=== PATIENT | male | born 1940 | race Caucasian/White ===

== ENCOUNTER 2017-03-05 09:42 | Emergency (ER) | payer MEDICARE, OTHER ==
[~2017-03-05] VITALS: Wt 83.5 kg
[~2017-03-05 09:42] MED LIST: ALPHAGAN-P 0.2%5 ML OPH; ASPIR LOW81 MG PO; ATENOLOL25 MG PO; BACTRIM DS 8001 TA1 PO; CLINDAMYCIN HC300 MG PO; FEROSUL325 MG PO; LASIX40 MG PO; LIPITOR40 MG PO; LYRICA150 MG PO; LYRICA25 MG PO; MULTI VITAMINS1 TAB PO; PREDNISONE10 MG PO; XALATAN 0.005%2.5 ML INTRAOC; ZITHROMAX500 MG PO
[2017-03-05] MEDS ORDERED: NORCO 5-325 TA1 EACH PO (11:40)
== END 2017-03-05 13:42 | disposition home or self-care (01) ==
LOC: ED 09:42
DX: M25.511 Pain in right shoulder (principal); Z90.49 Acquired absence of other specified parts of digestive tract; Z79.82 Long term (current) use of aspirin; Z79.899 Other long term (current) drug therapy

== ENCOUNTER 2019-07-01 11:09 | Emergency (ER) | payer OTHER ==
[~2019-07-01] VITALS: Ht 170.1 cm; Wt 86.2 kg
[~2019-07-01 11:09] MED LIST changes: +NORCO 5-325 TA1 EACH PO
== END 2019-07-01 13:07 | disposition home or self-care (01) ==
LOC: ED 11:09
DX: R60.0 Localized edema (principal); I10 Essential (primary) hypertension; E78.00 Pure hypercholesterolemia, unspecified; Z79.2 Long term (current) use of antibiotics; Z79.899 Other long term (current) drug therapy; Z79.82 Long term (current) use of aspirin

== ENCOUNTER 2020-03-26 16:02 | Emergency (ER) | payer OTHER ==
[~2020-03-26] VITALS: Ht 170.1 cm; Wt 90.7 kg
== END 2020-03-26 17:21 | disposition home or self-care (01) ==
LOC: ED 16:02
DX: S20.219A Contusion of unspecified front wall of thorax, initial encounter (principal); I10 Essential (primary) hypertension; Z79.899 Other long term (current) drug therapy; Z79.82 Long term (current) use of aspirin; V89.2XXA Person injured in unspecified motor-vehicle accident, traffic, initial encounter; Y93.89 Activity, other specified; Y92.89 Other specified places as the place of occurrence of the external cause; Y99.8 Other external cause status

== ENCOUNTER 2021-07-01 14:02 | Emergency (ER) | payer OTHER ==
[2021-07-01] MEDS ORDERED: HYDROCODONE-AC1 EAC1 PO (16:46)
[2021-07-07] MEDS ORDERED: VITAMIN B125000 MCG PO (14:58)
== END 2021-07-01 17:30 | disposition home or self-care (01) ==
LOC: ED 14:02
DX: S82.441A Displaced spiral fracture of shaft of right fibula, initial encounter for closed fracture (principal); S62.616A Displaced fracture of proximal phalanx of right little finger, initial encounter for closed fracture; S52.121A Displaced fracture of head of right radius, initial encounter for closed fracture; Z79.899 Other long term (current) drug therapy; Z79.2 Long term (current) use of antibiotics; Z79.82 Long term (current) use of aspirin; Z90.49 Acquired absence of other specified parts of digestive tract; W19.XXXA Unspecified fall, initial encounter; Y93.89 Activity, other specified; Y92.89 Other specified places as the place of occurrence of the external cause; Y99.8 Other external cause status

== ENCOUNTER → 2021-07-11 | Day surgery (SDC) | payer OTHER ==
[2021-07-07 14:28] VITALS: BP 110/66
[2021-07-07 15:58] LABS: BASO % 0.4 % (0.0-1.0); EOS # 0.3 10*3/uL (0.0-0.4); EOS % 3.4 % (1.0-4.0); HEMATOCRIT 32.3 % (42.0-52.0); LYMPH # 1.1 10*3/uL (1.3-4.4); LYMPH % 13.2 % (27.0-41.0); MEAN CELL VOLUME 88.7 fl (80.0-94.0); MEAN CORPUSCULAR HGB 29.1 pg (27.0-31.0); MEAN CORPUSCULAR HGB CONC 32.8 g/dl (33.0-37.0); MEAN PLATELET VOLUME 10.5 fl (9.6-12.3); MONO # 0.8 10*3/uL (0.1-1.0); MONO % 9.5 % (3.0-9.0); NEUT # 6.1 10*3/uL (2.3-7.9); NEUT % 73.3 % (47.0-73.0); PLATELET COUNT AUTOMATED 261 10*3/uL (130-400); RED BLOOD COUNT 3.64 10*6/uL (4.50-5.90); RED CELL DISTRI WIDTH 13.1 % (0-14.5); WHITE BLOOD COUNT 8.3 10*3/uL (4.8-10.8)
[2021-07-07 16:09] LABS: CREATININE 1.4 mg/dL (0.70-1.30); POTASSIUM 3.8 mmol/L (3.5-5.1)
[~2021-07-11] VITALS: Ht 170.1 cm; Wt 83.9 kg
[~2021-07-11] MED LIST changes: +HYDROCODONE-AC1 EAC1 PO; +VITAMIN B125000 MCG PO
[2021-07-11 06:49] VITALS: BP 119/61
[2021-07-11 08:57] VITALS: BP 115/49
[2021-07-11 09:15] VITALS: BP 131/74
[2021-07-11 09:30] VITALS: BP 135/78
[2021-07-11 09:51] VITALS: BP 133/70
== END | disposition home or self-care (01) ==
LOC: SDC 07-07 14:00
PROVIDERS: ATTEND Orthopaedic Surgery
DX: S82.841A Displaced bimalleolar fracture of right lower leg, initial encounter for closed fracture (principal); S93.421A Sprain of deltoid ligament of right ankle, initial encounter; I10 Essential (primary) hypertension; E78.00 Pure hypercholesterolemia, unspecified; Z87.891 Personal history of nicotine dependence; X58.XXXA Exposure to other specified factors, initial encounter; Y93.89 Activity, other specified; Y92.89 Other specified places as the place of occurrence of the external cause; Y99.8 Other external cause status

== ENCOUNTER → 2021-07-19 | Outpatient (CLI) | payer OTHER | END | disposition home or self-care (01) | LOC: ORTHO 01:49 | PROVIDERS: ATTEND Orthopaedic Surgery | DX: S82.841D Displaced bimalleolar fracture of right lower leg, subsequent encounter for closed fracture with routine healing (principal); X58.XXXD Exposure to other specified factors, subsequent encounter ==

== ENCOUNTER → 2021-08-16 | Outpatient (CLI) | payer OTHER | END | disposition home or self-care (01) | LOC: ORTHO 00:21 | PROVIDERS: ATTEND Orthopaedic Surgery | DX: S82.841D Displaced bimalleolar fracture of right lower leg, subsequent encounter for closed fracture with routine healing (principal); S52.134A Nondisplaced fracture of neck of right radius, initial encounter for closed fracture; M85.841 Other specified disorders of bone density and structure, right hand; S62.646D Nondisplaced fracture of proximal phalanx of right little finger, subsequent encounter for fracture with routine healing; X58.XXXA Exposure to other specified factors, initial encounter; X58.XXXD Exposure to other specified factors, subsequent encounter; Y93.89 Activity, other specified; Y92.89 Other specified places as the place of occurrence of the external cause; Y99.8 Other external cause status ==

== ENCOUNTER → 2021-09-29 | Outpatient (CLI) | payer OTHER | LOC: ORTHO 01:01 | PROVIDERS: ATTEND Orthopaedic Surgery | DX: S82.841D Displaced bimalleolar fracture of right lower leg, subsequent encounter for closed fracture with routine healing (principal); X58.XXXD Exposure to other specified factors, subsequent encounter ==

== ENCOUNTER 2022-12-24 11:12 | Inpatient (IN) | payer OTHER ==
[~2022-12-24] VITALS: Ht 167.6 cm; Wt 84.4 kg
[2022-12-24 11:29] VITALS: BP 125/62
[2022-12-24 11:48] LABS: BILIRUBIN Negative (Negative); BLOOD Negative (Negative); CLARITY Clear (Clear); COLOR Yellow (Yellow); GLUCOSE Negative (Negative); KETONE Negative (Negative); LEUKO ESTERASE Negative (Negative); NITRITE Negative (Negative); PH 7.5 (4.5-8.0)
[2022-12-24 12:04] LABS: BACTERIA TRACE; EPITHELIAL CELLS 0-2; WBC 0-2 wbc/hpf (0-5)
[2022-12-24 12:16] LABS: HEMATOCRIT 38.6 % (42.0-52.0); MEAN CELL VOLUME 87.9 fl (80.0-94.0); MEAN CORPUSCULAR HGB 29.8 pg (27.0-31.0); MEAN CORPUSCULAR HGB CONC 33.9 g/dl (33.0-37.0); MEAN PLATELET VOLUME 10.5 fl (9.6-12.3); PLATELET COUNT AUTOMATED 151 10*3/uL (130-400); RED BLOOD COUNT 4.39 10*6/uL (4.50-5.90); RED CELL DISTRI WIDTH 13.6 % (0-14.5); WHITE BLOOD COUNT 15.9 10*3/uL (4.8-10.8)
[2022-12-24 12:35] LABS: MANUAL DIFF REFLEX YES
[2022-12-24 12:45] LABS: POTASSIUM 3.3 mmol/L (3.4-5.1); TOTAL PROTEIN 6.9 gm/dL (6.0-8.0)
[2022-12-24 12:47] LABS: TOTAL CELLS COUNTED 100 #CELLS
[2022-12-24 12:48] LABS: PLATELET SUFFICIENCY NORMAL (NORMAL)
[2022-12-24 13:19] VITALS: BP 106/64
[2022-12-24 15:40] VITALS: BP 135/59
[2022-12-24 15:48] VITALS: BP 116/59
[2022-12-24] MEDS ORDERED: TERAZOSIN HCL5 M1 PO (17:52)
[2022-12-24] MEDS ORDERED: OMEPRAZOLE MAGN20 MG PO (17:53)
[2022-12-24] MEDS ORDERED: FEROSUL325 MG PO (17:54)
[2022-12-24] MEDS ORDERED: HYDROCHLOROTHIA25 M1 PO (17:54)
[2022-12-24] MEDS ORDERED: VOLTAREN ARTHRI20 GM T (17:58)
[2022-12-24] MEDS ORDERED: ACETAZOLAMIDE250 MG PO (17:59)
[2022-12-24] MEDS ORDERED: VITAMIN D350 MC2 PO (18:00)
[2022-12-24 20:00] VITALS: BP 130/61
[2022-12-24 23:59] VITALS: BP 94/50
[2022-12-25 06:39] LABS: BASO % 0.4 % (0.0-1.0); EOS # 0.1 10*3/uL (0.0-0.4); HEMATOCRIT 34.9 % (42.0-52.0); LYMPH # 0.9 10*3/uL (1.3-4.4); MEAN CELL VOLUME 89.7 fl (80.0-94.0); MEAN CORPUSCULAR HGB 29.6 pg (27.0-31.0); MEAN PLATELET VOLUME 10.9 fl (9.6-12.3); MONO % 9.7 % (3.0-9.0); NEUT # 8.2 10*3/uL (2.3-7.9); NEUT % 79.1 % (47.0-73.0); PLATELET COUNT AUTOMATED 131 10*3/uL (130-400); RED BLOOD COUNT 3.89 10*6/uL (4.50-5.90); RED CELL DISTRI WIDTH 13.9 % (0-14.5); WHITE BLOOD COUNT 10.4 10*3/uL (4.8-10.8)
[2022-12-25 07:21] LABS: FREE T4 1.1 ng/dl (0.89-1.76); POTASSIUM 3.5 mmol/L (3.4-5.1); THYROID STIM HORMONE (HS) 1.194 uIU/ml (0.550-4.780); TOTAL PROTEIN 5.9 gm/dL (6.0-8.0)
[2022-12-25 08:00] VITALS: BP 112/53
[2022-12-25 12:00] VITALS: BP 100/50
[2022-12-25 16:00] VITALS: BP 110/77
[2022-12-25 20:00] VITALS: BP 118/63
[2022-12-26] VITALS: BP 116/56
[2022-12-26 06:52] LABS: BASO % 0.5 % (0.0-1.0); EOS # 0.4 10*3/uL (0.0-0.4); HEMATOCRIT 33.6 % (42.0-52.0); LYMPH % 12.8 % (27.0-41.0); MEAN CELL VOLUME 90.3 fl (80.0-94.0); MEAN CORPUSCULAR HGB 29.8 pg (27.0-31.0); MEAN PLATELET VOLUME 11.3 fl (9.6-12.3); MONO # 0.9 10*3/uL (0.1-1.0); MONO % 12.2 % (3.0-9.0); NEUT # 5.2 10*3/uL (2.3-7.9); NEUT % 68.8 % (47.0-73.0); PLATELET COUNT AUTOMATED 142 10*3/uL (130-400); RED BLOOD COUNT 3.72 10*6/uL (4.50-5.90); RED CELL DISTRI WIDTH 13.9 % (0-14.5); WHITE BLOOD COUNT 7.6 10*3/uL (4.8-10.8)
[2022-12-26 07:33] LABS: POTASSIUM 3.6 mmol/L (3.4-5.1)
[2022-12-26 08:00] VITALS: BP 128/67
[2022-12-26 12:00] VITALS: BP 124/68
[2022-12-26] MEDS ORDERED: CEPHALEXIN500 M1 PO (13:48)
== END 2022-12-26 14:48 | disposition home or self-care (01) | DRG 602 ==
LOC: ED 11:12 → EDHOLD 14:07 → 4E 14:07
PROVIDERS: Internal Medicine; Nurse Practitioner Family; Student in an Organized Health Care Education/Training Program; ADMIT Internal Medicine; ATTEND Internal Medicine
DX: L03.115 Cellulitis of right lower limb (principal); N17.0 Acute kidney failure with tubular necrosis; R17 Unspecified jaundice; D64.9 Anemia, unspecified; E87.6 Hypokalemia; G62.9 Polyneuropathy, unspecified; E53.8 Deficiency of other specified B group vitamins; E78.5 Hyperlipidemia, unspecified; I10 Essential (primary) hypertension; R73.9 Hyperglycemia, unspecified; W18.39XA Other fall on same level, initial encounter; Y93.89 Activity, other specified; Y92.098 Other place in other non-institutional residence as the place of occurrence of the external cause; Y99.8 Other external cause status; Z87.891 Personal history of nicotine dependence; Z79.82 Long term (current) use of aspirin; Z79.1 Long term (current) use of non-steroidal anti-inflammatories (NSAID); Z79.899 Other long term (current) drug therapy; Z90.49 Acquired absence of other specified parts of digestive tract

== ENCOUNTER → 2023-04-26 | Outpatient (CLI) | payer OTHER ==
[~2023-04-26] MED LIST changes: +ACETAZOLAMIDE250 MG PO; +CEPHALEXIN500 M1 PO; +HYDROCHLOROTHIA25 M1 PO; +OMEPRAZOLE MAGN20 MG PO; +TERAZOSIN HCL5 M1 PO; +VITAMIN D350 MC2 PO; +VOLTAREN ARTHRI20 GM T
== END | disposition home or self-care (01) ==
LOC: CT 04-24 13:00
PROVIDERS: ATTEND Nurse Practitioner Family
DX: K57.30 Diverticulosis of large intestine without perforation or abscess without bleeding (principal); R63.4 Abnormal weight loss; N28.89 Other specified disorders of kidney and ureter; M47.816 Spondylosis without myelopathy or radiculopathy, lumbar region; M48.04 Spinal stenosis, thoracic region